=== PATIENT | male | born 1995 | race Caucasian/White ===

== ENCOUNTER 2019-07-18 18:40 | Emergency (ER) | payer SELFPAY ==
[~2019-07-18] VITALS: Ht 177.8 cm; Wt 50.0 kg
[2019-07-18 21:52] LABS: BASOPHILS % 0.3 % (0.0-2.0); HEMATOCRIT. 42.5 % (42.0-52.0); HEMOGLOBIN. 14.1 g/dL (14.0-18.0); LYMPHOCYTES % 8.4 % (20.0-50.0); MEAN CORPUSCULAR HEMOGLOBIN 27.9 pg (28.0-32.0); MEAN CORPUSCULAR VOLUME 84.1 fL (80.0-94.0); MEAN PLATELET VOLUME 8.3 fl (7.4-10.4); MONOCYTES % 8.7 % (2.0-8.0); NEUTROPHILS % 79.6 % (40.0-76.0); PLATELET 158 x1000/uL (130-400); RED BLOOD CELL COUNT 5.05 mill/uL (4.7-6.1); RED CELL DISTRIBUTION WIDTH 13.2 % (11.6-14.6)
[2019-07-18 22:02] LABS: CHLORIDE 105 mEq/L (98-107)
[2019-07-18] MEDS ORDERED: SODIUM CHLORIDE 0.9% 1000ML BAG (SEPSIS BOLUS) IV ONE (22:45)
[2019-07-19 00:25] VITALS: BP 117/64
== END 2019-07-19 00:50 | disposition home or self-care (01) ==
LOC: ER 18:40
DX: B34.9 Viral infection, unspecified (principal); R55 Syncope and collapse; R05 Cough; R06.09 Other forms of dyspnea; R50.9 Fever, unspecified; R53.1 Weakness; M54.9 Dorsalgia, unspecified; R40.4 Transient alteration of awareness
CPT/HCPCS: 36415; 71045; 80053; 83605; 83880; 84484; 85025; 93005; 96360; 99284; J7030

== ENCOUNTER 2020-11-26 00:43 | Emergency (ER) | payer SELFPAY ==
[~2020-11-26] VITALS: Ht 172.7 cm; Wt 73.0 kg
[2020-11-26] MEDS ORDERED: MORPHINE SULFATE 10 MG/ML CPJ IV ONE (01:30)
[2020-11-26] MEDS ORDERED: ACETAMINOPHEN 325MG TABLET PO ONE (01:30)
[2020-11-26] MEDS ORDERED: MORPHINE SULFATE 10 MG/ML CPJ IV SCH (02:00)
[2020-11-26] MEDS ORDERED: CEPH250C2 MT (04:04)
[2020-11-26] MEDS ORDERED: TETANUS, DIPHTHERIA, PERTUSSIS VAC/PF 0.5ML (>7YR OLD) IM ONE (04:15)
[2020-11-26 04:30] VITALS: BP 122/79
== END 2020-11-26 04:48 | disposition home or self-care (01) ==
LOC: ER 00:43
DX: S06.9X9A Unspecified intracranial injury with loss of consciousness of unspecified duration, initial encounter (principal); S05.11XA Contusion of eyeball and orbital tissues, right eye, initial encounter; S20.20XA Contusion of thorax, unspecified, initial encounter; Y08.89XA Assault by other specified means, initial encounter; Y93.89 Activity, other specified; Y92.89 Other specified places as the place of occurrence of the external cause; Y99.8 Other external cause status
CPT/HCPCS: 70150; 71101; 90471; 90715; 93005; 96374; 99284; J2270